=== PATIENT | female | born 1955 | race Caucasian/White ===

== ENCOUNTER → 2016-06-06 | Outpatient (CLI) | payer MEDICARE ==
[2016-06-06 08:39] LABS: HEMOGLOBIN 12.4 gm/dl (12.3-15.3); RED BLOOD COUNT 4.41 M/UL (4.00-5.10); WHITE BLOOD COUNT 4.5 K/UL (4.5-11.0)
== END ==
LOC: OPSV 08:10
PROVIDERS: Internal Medicine
DX: K90.9 Intestinal malabsorption, unspecified (principal)
CPT/HCPCS: 36415; 82728; 83540; 85027; 96365; J1756; J7050

== ENCOUNTER → 2016-08-23 | Outpatient (CLI) | payer MEDICARE | LOC: KOH-I 09:50 → CT 09-03 14:30 | DX: R10.12 Left upper quadrant pain (principal); R10.32 Left lower quadrant pain; R14.0 Abdominal distension (gaseous); D64.9 Anemia, unspecified | CPT/HCPCS: 74178; Q9962 ==

== ENCOUNTER → 2020-07-13 | Outpatient (CLI) | payer MEDICARE ==
[~2020-07-13] MED LIST: BENTYL 20MG TAB20 MG PO; CIPRO500 MG PO; FLAGYL500 MG PO; LIPITOR TAB 2020 MG PO; MEDROL DOSEPAK 24 MG PO; PLAVIX 75 MG TA75 MG PO; PRINIVIL5 MG PO; PROBIOTIC1 EAC3 PO; PROTONIX40 MG PO; SOTALOL80 MG PO; VITAMIN B-121000 MCG PO; VITAMIN D1000 UNI1 PO; ZOFRAN ODT 4 MG4 MG PO
== END ==
LOC: KOH-I 10:52
DX: R06.02 Shortness of breath (principal)
CPT/HCPCS: 71046

== ENCOUNTER → 2021-03-29 | Outpatient (CLI) | payer MEDICARE | LOC: EXRD 08:48 | DX: R10.9 Unspecified abdominal pain (principal) | CPT/HCPCS: 76705 ==